=== PATIENT | male | born 1990 | race African-American/Black ===

== ENCOUNTER 2022-01-22 04:31 | Observation (INO) | payer OTHER ==
[~2022-01-22] VITALS: Ht 177.8 cm; Wt 105.8 kg
[2022-01-22 05:11] LABS: BASO % 0.2 % (0.0-2.0); EOS # 0.1 K/mm3 (0.0-0.7); EOS % 0.4 % (0.0-4.0); GRAN # 15.5 K/mm3 (1.4-6.5); GRAN % 84.1 % (42.2-75.2); HEMATOCRIT 46.7 % (42.0-52.0); HEMOGLOBIN 16.3 g/dl (13.5-18.0); LYMPH # 1.6 K/mm3 (1.2-3.4); LYMPH % 8.5 % (20.0-51.0); MEAN CELL VOLUME 84 fl (80.0-100.0); MEAN CORPUSCULAR HEMOGLOBIN 29 pg (27-31); MEAN CORPUSCULAR HGB CONC 35 g/dl (33.0-37.0); MEAN PLATELET VOLUME 9.7 fl (7.4-10.4); MONO # 1.1 K/mm3 (0.1-0.6); MONO % 6.1 % (1.7-9.3); PLATELET COUNT 271 K/mm3 (130-400); RED BLOOD COUNT 5.56 M/mm3 (4.20-5.60)
[2022-01-22 05:24] LABS: ALBUMIN 4.5 gm/dL (3.5-5.0); BILIRUBIN,TOTAL 0.9 mg/dL (0.2-1.2); CALCIUM 9.3 mg/dL (8.4-10.2); CREATININE, serum 0.96 mg/dL (0.72-1.25); POTASSIUM 3.7 mmol/L (3.5-4.5); TOTAL PROTEIN 8.1 gm/dL (6.2-8.1)
[2022-01-22 07:55] VITALS: BP 102/66; PULSE 72; TEMP 98
--- NOTE | 2022-01-22 08:00 | NUR ---
PATIENT ADMITED FROM ER INTO ROOM 348. A&O. VSS. C/O MILD TO MOD ABD PAIN. NOTIFIED, SEE ORDERS. PATIENT PLANNED FOR APPY LATER THIS AM.
[2022-01-22] MEDS ORDERED: MOTRIN 600600 MG/TAB PO (09:20)
[2022-01-22] MEDS ORDERED: NORCO 325 MG-51 TAB PO (09:21)
[2022-01-22 11:20] VITALS: BP 132/65; PULSE 74; TEMP 98.9
--- NOTE | 2022-01-22 11:20 | NUR ---
PATIENT BACK IN ROOM POST OP. A&O. VSS. C/O MODERATE POST OP PAIN IN ABD. GAVE PRN NORCO, ONE TAB WITH CRACKERS. ABD LAP SITES X3 ARE WELL APPROXIMATED. HEAD TO TOE ASSESSMENT WNL. GIRLFRIEND AT BEDSIDE. PATIENT PLANNING TO DISCHARGE HOME AFTER CRITERIA MEET.
[2022-01-22 11:35] VITALS: BP 132/77; PULSE 73
[2022-01-22 11:50] VITALS: BP 122/74; PULSE 75
[2022-01-22 12:05] VITALS: BP 129/82; PULSE 72
[2022-01-22 12:35] VITALS: BP 131/74; PULSE 72
--- NOTE | 2022-01-22 13:20 | NUR ---
PATIENT MEET DISCHARGE CRITERIA AND READY TO GO HOME. GAVE DISCHARGE INSTRUCTIONS, E-SCRIPTS SENT, AND DISCUSSED F/U APT. ANSWERED QUESTIONS/CONCERNS. DC'D IV SITE AND COVERED WITH GAUZE & COBAN. PATIENT DRESSED, PACKED AND DISCHARGED.
== END 2022-01-22 13:20 | disposition home or self-care (01) ==
LOC: COL.ER 04:31 → SURG 06:02
PROVIDERS: Emergency Medicine; ADMIT Surgery
DX: K35.80 Unspecified acute appendicitis (principal); Z87.891 Personal history of nicotine dependence
CPT/HCPCS: G0378; J1100; J1885; J2270; J2405; J2543; J2704; J3010; J7030; Q9967